=== PATIENT | male | born 1970 | race African-American/Black ===

== ENCOUNTER 2016-11-26 17:44 | Emergency (ER) | payer MEDICAID, OTHER ==
[~2016-11-26] VITALS: Ht 182.9 cm; Wt 90.9 kg
[~2016-11-26 17:44] MED LIST: CLON0.2T PO; DICY1TAB26 PO; INVE6TAB2 PO; KLON2TAB PO; MAGN1SOL2 PO; MIRA33502 PO; PARO30TA PO; PRAV40TA PO; Z.0.UNKNOWN
[2016-11-26 17:46] VITALS: BP 158/86; PULSE 115; RESP 24; TEMP 98.7
--- NOTE | 2016-11-26 17:51 | PD ---
Physical Exam Date Seen by Provider: Nov 26, 2016 Time Seen by Provider: 17:47 Narrative 46 y/o male with Hx PTSD with worsening symptoms recently. Patient currently on Adderal and Lexapro. Was on Seroquel, but developed Pancreatitis. Patient not sleeping or eating. Very Anxious. Denies Suicidal or Homocidal Ideation. Here voluntarily for Psych Eval. V/S Stable. Psyche Labs ordered per protocol. Patient waiting med bed placement. [facility] Medical Record Reviewed: Yes Supervised Visit with TELLO: Yes Condition: Stable Abraham Nunez Nov 26, 2016 17:51
[2016-11-26 18:27] LABS: AUTOMATED NEUTROPHIL # 5.9 TH/MM3 (1.8-7.7); BASOPHIL % 0.5 % (0.0-2.0); EOSINOPHIL # 0.4 TH/MM3 (0-0.4); EOSINOPHIL % 3.6 % (0.0-4.0); HEMATOCRIT 47.2 % (39.0-51.0); HEMO FLAGS DIFF FINAL; LYMPH % 28.1 % (9.0-44.0); LYMPHOCYTE # 2.7 TH/MM3 (1.0-4.8); MEAN CELL VOLUME 90.8 FL (80.0-100.0); MEAN CORPUSCULAR HEMOGLOBIN 30.3 PG (27.0-34.0); MEAN CORPUSCULAR HGB CONC 33.4 % (32.0-36.0); MONO % 7.1 % (0.0-8.0); NEUT % 60.7 % (16.0-70.0); PLATELET COUNT 261 TH/MM3 (150-450); RED CELL DISTRIBUTION WIDTH 12.8 % (11.6-17.2); WHITE BLOOD COUNT 9.7 TH/MM3 (4.0-11.0)
[2016-11-26 18:36] LABS: AMPHETAMINE, URINE NEG (NEG); BARBITURATES, URINE NEG (NEG); COCAINE, URINE POS (NEG)
[2016-11-26 18:49] LABS: ALKALINE PHOSPHATASE 119 U/L (45-117); TOTAL BILIRUBIN ADULT 0.8 MG/DL (0.2-1.0)
[2016-11-26 18:56] LABS: ALT (GPT) 34 U/L (12-78); ANION GAP 9 MEQ/L (5-15); AST (GOT) 50 U/L (15-37); BICARBONATE 25.2 MEQ/L (21.0-32.0); BLOOD UREA NITROGEN 17 MG/DL (7-18); CHLORIDE 107 MEQ/L (98-107); GLOMERULAR FILTRATION RATE 58 ML/MIN (>89); SODIUM (NA) 141 MEQ/L (136-145)
[2016-11-26 18:59] LABS: POTASSIUM 4.2 MEQ/L (3.5-5.1)
[2016-11-26 19:58] VITALS: BP 137/77; PULSE 87; RESP 16; TEMP 98.5; O2SAT 97
[2016-11-26] MEDS ORDERED: ROSU10 PO (20:13)
[2016-11-26] MEDS ORDERED: LOSA100T PO (20:13)
[2016-11-26] MEDS ORDERED: LEXA20TA PO (20:13)
[2016-11-26] MEDS ORDERED: DIAZ10 PO (20:13)
[2016-11-26] MEDS ORDERED: ADDE20 PO (20:13)
--- NOTE | 2016-11-26 20:20 | PD ---
HPI Chief Complaint: Depression Time Seen by Provider: 20:14 Travel History International Travel<30 days: No Contact w/Intl Traveler<30days: No Traveled to known affect area: No History of Present Illness HPI Patient is a 46-year-old male presenting to the emergency department due to worsening depression, racing thoughts, PTSD. Patient states that he has been off of his medications for approximately one week. He recently moved here from [place] and did not obtain refills prior to leaving. Patient reports a history of PTSD, bipolar disorder with psychotic tendencies, ADHD. Patient was in the stationed in [facility] in [facility]. Patient denies any suicidal ideations but states that he shouldn't be around people because he doesn't know how he would react someone made him mad. Patient does admit to a previous suicide attempt 4 years ago where he played [employer]. Additionally his past medical history is significant for hypertension and hyperlipidemia. PFSH Past Medical History ADHD: Yes Asthma: Yes Blood Disorders: No Bipolar Disorder: Yes Anxiety: Yes Depression: Yes Cancer: No Cardiac Catheterization: No High Cholesterol: Yes Chemotherapy: No Chest Pain: No Congestive Heart Failure: No COPD: No Coronary Artery Disease: Yes Diabetes: No Diminished Hearing: No Endocrine: No GERD: Yes Hypertension: Yes Immune Disorder: No Implanted Vascular Access Dvce: No Musculoskeletal: Yes (DDD, Lumbar stenosis) Neurologic: No Psychiatric: Yes (PTSD, bipolar with psychotic tendencies) Reproductive: No Respiratory: No Immunizations Current: Yes Myocardial Infarction: No Pancreatitis: Yes Radiation Therapy: No Sleep Apnea: No Thyroid Disease: No Ulcer: Yes Tetanus Vaccination: < 5 Years Influenza Vaccination: Yes PNEUMOCCOCAL Vaccine (Year): 2 Past Surgical History Surgical History: No Previous Surgery Coronary Artery Bypass Graft: No Other Surgery: No Social History Alcohol Use: Yes (6 pack of beers a week) Tobacco Use: Yes (1ppd) Substance Use: Yes (occaisonal Marijuana use) Allergies-Medications (Allergen,Severity, Reaction): Coded Allergies: Abilify (Verified Allergy, Severe, DYSTONIC REACTION, 11/26/16) Morphine (Verified Allergy, Severe, COUGH/RASH, 11/26/16) Seroquel (Verified Allergy, Severe, PANCREATITIS, 11/26/16) rage reaction for two weeks until therapeutic levels reached Toradol (Verified Allergy, Severe, SOB, 11/26/16) Vasotec (Verified Allergy, Severe, Cough, 11/26/16) Reported Meds & Prescriptions Reported Meds & Active Scripts Active Reported Crestor (Rosuvastatin Calcium) 10 Mg Tab 10 Mg PO DAILY Valium (Diazepam) 10 Mg Tab 10 Mg PO TID PRN Losartan (Losartan Potassium) 100 Mg Tab 100 Mg PO DAILY Adderall (Amphetamine-Dextroamphetamine) 20 Mg Tab 30 Mg PO DAILY Avoid late evening doses. Space doses at least 4 to 6 hours if more than once/day dosing. Lexapro (Escitalopram Oxalate) 20 Mg Tab 40 Mg PO DAILY Review of Systems Except as stated in HPI: all other systems reviewed are Neg Psychiatric: Positive: Anxiety, Depression, Substance Abuse, Homicidal Ideation Physical Exam Narrative GENERAL: Well-developed, well-nourished, alert gentleman. Resting comfortably in no acute distress. SKIN: Focused skin assessment warm/dry. HEAD: Atraumatic. Normocephalic. EYES: Pupils equal and round. No scleral icterus. No injection or drainage. ENT: No nasal bleeding or discharge. Mucous membranes pink and moist. NECK: Trachea midline. No JVD. CARDIOVASCULAR: Regular rate and rhythm. No murmur appreciated. RESPIRATORY: No accessory muscle use. Clear to auscultation. Breath sounds equal bilaterally. GASTROINTESTINAL: Abdomen soft, non-tender, nondistended. Hepatic and splenic margins not palpable. MUSCULOSKELETAL: No obvious deformities. No clubbing. No cyanosis. No edema. NEUROLOGICAL: Awake and alert. No obvious cranial nerve deficits. Motor grossly within normal limits. Normal speech. PSYCHIATRIC: Depressed mood and flat affect; insight and judgment normal. Data Data Last Documented VS Vital Signs Date Time Temp Pulse Resp B/P Pulse Ox O2 Delivery O2 Flow Rate FiO2 11/26/16 19:58 98.5 87 16 137/77 97 Room Air Orders Complete Blood Count With Diff (11/26/16 17:52) Comprehensive Metabolic Panel (11/26/16 17:52) Psych Screen (11/26/16 17:52) Drug Screen, Random Urine (11/26/16 17:52) Alcohol (Ethanol) (11/26/16 17:52) Labs Laboratory Tests Test 11/26/16 11/26/16 17:55 18:00 White Blood Count 9.7 TH/MM3 Red Blood Count 5.20 MIL/MM3 Hemoglobin 15.8 GM/DL Hematocrit 47.2 % Mean Corpuscular Volume 90.8 FL Mean Corpuscular Hemoglobin 30.3 PG Mean Corpuscular Hemoglobin 33.4 % Concent Red Cell Distribution Width 12.8 % Platelet Count 261 TH/MM3 Mean Platelet Volume 7.5 FL Neutrophils (%) (Auto) 60.7 % Lymphocytes (%) (Auto) 28.1 % Monocytes (%) (Auto) 7.1 % Eosinophils (%) (Auto) 3.6 % Basophils (%) (Auto) 0.5 % Neutrophils # (Auto) 5.9 TH/MM3 Lymphocytes # (Auto) 2.7 TH/MM3 Monocytes # (Auto) 0.7 TH/MM3 Eosinophils # (Auto) 0.4 TH/MM3 Basophils # (Auto) 0.0 TH/MM3 CBC Comment DIFF FINAL Differential Comment Sodium Level 141 MEQ/L Potassium Level 4.2 MEQ/L Chloride Level 107 MEQ/L Carbon Dioxide Level 25.2 MEQ/L Anion Gap 9 MEQ/L Blood Urea Nitrogen 17 MG/DL Creatinine 1.58 MG/DL Estimat Glomerular Filtration 58 ML/MIN Rate Random Glucose 142 MG/DL Calcium Level 8.9 MG/DL Total Bilirubin 0.8 MG/DL Aspartate Amino Transf 50 U/L (AST/SGOT) Alanine Aminotransferase 34 U/L (ALT/SGPT) Alkaline Phosphatase 119 U/L Total Protein 7.9 GM/DL Albumin 4.0 GM/DL Ethyl Alcohol Level LESS THAN 3 MG/DL Urine Opiates Screen NEG Urine Barbiturates Screen NEG Urine Amphetamines Screen NEG Urine Benzodiazepines Screen NEG Urine Cocaine Screen POS Urine Cannabinoids Screen NEG MDM Medical Decision Making Medical Screen Exam Complete: Yes Emergency Medical Condition: Yes Interpretation(s) Vital Signs Date Time Temp Pulse Resp B/P Pulse Ox O2 Delivery O2 Flow Rate FiO2 11/26/16 19:58 98.5 87 16 137/77 97 Room Air 11/26/16 17:46 98.7 115 24 158/86 Room Air Differential Diagnosis Mood disorder versus substance abuse versus homicidal ideations versus suicidal ideations versus other Narrative Course Patient is a 46-year-old male presenting to emergency for evaluation of worsening depression and homicidal ideations. Vital signs are stable, patient is resting comfortably. He reports a previous suicide attempt, racing thoughts and doesn't feel safe being left alone with other people for fear he may hurt someone. CBC is unremarkable Chemistries unremarkable Urine drug screen is positive for cocaine Alcohol level was normal Patient is medically clear for psychiatric evaluation at this time. Diagnosis Primary Impression: Medical clearance for psychiatric admission Condition: Stable Myrna Thapa Nov 26, 2016 20:20
[2016-11-27 02:40] VITALS: BP 134/93; PULSE 75; RESP 18; O2SAT 96
[2016-11-27 06:40] VITALS: BP 146/85; PULSE 61; RESP 18; O2SAT 99
[2016-11-27 10:00] VITALS: BP 141/65; PULSE 71; RESP 18; RESP 8
--- NOTE | 2016-11-27 15:13 | PD ---
History of Present Illness Chief Complaint: Depression Time Seen by Provider: 14:45 Travel History International Travel<30 Days: No Contact w/Intl Traveler<30days: No Known affected area: No Legal Status Legal Status: Voluntary History of Present Illness: History of Present Illness HPI Patient is a 46-year-old male with a reported hx of PTSD, depression, ADHD, bipolar disorder with psychosis presenting to the emergency department on a voluntary basis . Patient arrived to [place] yesterday from [place] and he came down here to try and repair his relationship with his . He states that he ran out of his medications 1 week as he did not obtain refill prior to moving. Since being off his medications he reports the following symptoms; voices that are like an echo or whispers, racing thoughts, decreased concentration, not sleeping, irritability with increased anger. He reports the symptoms have been escalating for several weeks and that the medications he was on were not fully managing his symptoms. Patient's initial complaint to ED screener was that he was having difficulty being around people. He was recommended to seek outpatient treatment . He became agitated and threatening towards staff and threatened that if he were discharged that " something bad would happen". He was initially threatening towards staff in [facility]. Patient is interviewed with DENISE Graff. He is alert and oriented. Speech is clear. He is irritable. He is continuing to report symptomatology but is initially opposed to receiving medication. " I don't want to be your guinea pig ". He requests Valium at some point. He only wants to begun medication that he will continue on outpatient basis. I have explained to him that since he is reporting multiple symptoms that it is recommended we begin some medication until he is accepted at [facility]. Patient does not appear internally preoccupied at this time. No suicidal ideation. He continues to verbalize that he feels unsafe being around people but does not elaborate on waht this means. [facility] Past Medical History ADHD: Yes Asthma: Yes Blood Disorders: No Bipolar Disorder: Yes Anxiety: Yes Depression: Yes Cancer: No Cardiac Catheterization: No High Cholesterol: Yes Chemotherapy: No Chest Pain: No Congestive Heart Failure: No COPD: No Coronary Artery Disease: Yes Diabetes: No Diminished Hearing: No Endocrine: No GERD: Yes Hypertension: Yes Immune Disorder: No Implanted Vascular Access Dvce: No Musculoskeletal: Yes (DDD, Lumbar stenosis) Neurologic: No Psychiatric: Yes (PTSD, bipolar with psychotic tendencies) Reproductive: No Respiratory: No Immunizations Current: Yes Myocardial Infarction: No Pancreatitis: Yes Radiation Therapy: No Sleep Apnea: No Thyroid Disease: No Ulcer: Yes Tetanus Vaccination: < 5 Years Influenza Vaccination: Yes PNEUMOCCOCAL Vaccine (Year): 2 Past Surgical History Surgical History: No Previous Surgery Coronary Artery Bypass Graft: No Other Surgery: No Psychiatric History Psychiatric History Hx Psychiatric Treatment: HX OF BIPOLAR D/O AND PTSD, ADHD Reports he has been in tx with Dr. Peter. Past medications include Seroquel, Abilify, Latuda. He reports adverse effects from all these. History of Inpatient Treatment: Yes Guns or firearms in home: No Social History Born in [place]. Completed HS. since . Has adult children Served in the [employer]. Retired from the [employer] w medical discharge. Hx Alcohol Use: Yes (6 pack of beers a week) Hx Tobacco Use: Yes (1ppd) Hx Substance Use: Yes (occaisonal Marijuana use) Substance Use Type: Alcohol, Crack, Marijuana, Nicotine/Cigarettes, Cocaine Other Substances Used: ETOH, COCAINE, NICOTINE, OCC MARIJUANA Hx of Substance Use Treatment: No Family Psychiatric History deneis anySMA Allergies-Medications (Allergen,Severity, Reaction): Coded Allergies: Abilify (Verified Allergy, Severe, DYSTONIC REACTION, 11/26/16) Morphine (Verified Allergy, Severe, COUGH/RASH, 11/26/16) Seroquel (Verified Allergy, Severe, PANCREATITIS, 11/26/16) rage reaction for two weeks until therapeutic levels reached Toradol (Verified Allergy, Severe, SOB, 11/26/16) Vasotec (Verified Allergy, Severe, Cough, 11/26/16) Reported Meds & Prescriptions Reported Meds & Active Scripts Active Reported Crestor (Rosuvastatin Calcium) 10 Mg Tab 10 Mg PO DAILY Valium (Diazepam) 10 Mg Tab 10 Mg PO TID PRN Losartan (Losartan Potassium) 100 Mg Tab 100 Mg PO DAILY Adderall (Amphetamine-Dextroamphetamine) 20 Mg Tab 30 Mg PO DAILY Avoid late evening doses. Space doses at least 4 to 6 hours if more than once/day dosing. Lexapro (Escitalopram Oxalate) 20 Mg Tab 40 Mg PO DAILY Review of Systems Except as stated in HPI: all other systems reviewed are Neg Psychiatric: COMPLAINS OF: Anxiety, Mood changes, Depression, Hallucinations, Agitation Exam Alert: Yes [place]: Person (ox4) Mood: Agitated, Angry, Oppositional Affect: Other (angry affect) Speech: Clear, Logical Eye Contact: Normal Memory Intact: Comment (No impairmetn) Hallucinations: Auditory (unable to determine what they say) Delusions: No Suicidal: Ideation (deneis) Homicidal: Ideation (feels like he cannot be around people and be safe.) Insight/Judgement Safe. Poor. MDM Medical Decision Making Medical Record Reviewed: Yes Assessment/Plan 46 year old male with a reported hx of PTSD, ADHD, bipolar disorder who reports that he has been out of medication and has experienced increase in symptoms including agitation, racing thoughts, not sleeping, and feeling unsafe. At this point he will remain on SMA list. Initiate treatment as patient is volatile and easily agitated and reports not sleeping. SMA list for tx as no appropriate bed here at [facility]. Orders Complete Blood Count With Diff (11/26/16 17:52) Comprehensive Metabolic Panel (11/26/16 17:52) Psych Screen (11/26/16 17:52) Drug Screen, Random Urine (11/26/16 17:52) Alcohol (Ethanol) (11/26/16 17:52) Diet Regular Basic (11/27/16 Breakfast) Diet Regular Basic (11/27/16 Lunch) Diet Regular Basic (11/27/16 Dinner) Results Vital Signs Date Time Temp Pulse Resp B/P Pulse Ox O2 Delivery O2 Flow Rate FiO2 11/27/16 10:00 71 18 141/65 Room Air 11/27/16 06:40 61 18 146/85 99 11/27/16 02:40 75 18 134/93 96 11/26/16 19:58 98.5 87 16 137/77 97 Room Air 11/26/16 17:46 98.7 115 24 158/86 Room Air Laboratory Tests Test 11/26/16 11/26/16 17:55 18:00 White Blood Count 9.7 Red Blood Count 5.20 Hemoglobin 15.8 Hematocrit 47.2 Mean Corpuscular Volume 90.8 Mean Corpuscular Hemoglobin 30.3 Mean Corpuscular Hemoglobin 33.4 Concent Red Cell Distribution Width 12.8 Platelet Count 261 Mean Platelet Volume 7.5 Neutrophils (%) (Auto) 60.7 Lymphocytes (%) (Auto) 28.1 Monocytes (%) (Auto) 7.1 Eosinophils (%) (Auto) 3.6 Basophils (%) (Auto) 0.5 Neutrophils # (Auto) 5.9 Lymphocytes # (Auto) 2.7 Monocytes # (Auto) 0.7 Eosinophils # (Auto) 0.4 Basophils # (Auto) 0.0 CBC Comment DIFF FINAL Differential Comment Sodium Level 141 Potassium Level 4.2 Chloride Level 107 Carbon Dioxide Level 25.2 Anion Gap 9 Blood Urea Nitrogen 17 Creatinine 1.58 Estimat Glomerular Filtration 58 Rate Random Glucose 142 Calcium Level 8.9 Total Bilirubin 0.8 Aspartate Amino Transf 50 (AST/SGOT) Alanine Aminotransferase 34 (ALT/SGPT) Alkaline Phosphatase 119 Total Protein 7.9 Albumin 4.0 Ethyl Alcohol Level LESS THAN 3 Urine Opiates Screen NEG Urine Barbiturates Screen NEG Urine Amphetamines Screen NEG Urine Benzodiazepines Screen NEG Urine Cocaine Screen POS Urine Cannabinoids Screen NEG Diagnosis Primary Impression: Medical clearance for psychiatric admission Additional Impression: Bipolar disorder Condition: Stable Problem Qualifiers Additional Impression: Bipolar disorder Qualified Code: F31.0 - Bipolar affective disorder, current episode hypomanic Yahaira Cordova Nov 27, 2016 15:13
[2016-11-27] MEDS ORDERED: OLANZapine IM 10 MG VIAL IM ONE (16:00)
[2016-11-27] MEDS ORDERED: diphenhydrAMINE HCL 50 MG/ML VIAL IM PRN (16:00)
[2016-11-27 22:00] VITALS: BP 126/81; PULSE 83; RESP 18
[2016-11-28 01:51] VITALS: BP 133/77; PULSE 56; RESP 18
[2016-11-28 06:04] VITALS: BP 131/90; PULSE 56; RESP 18
[2016-11-28] MEDS ORDERED: OLANZapine 10 MG TAB PO ONE (09:15)
--- NOTE | 2016-11-28 09:37 | HHI.PYPN ---
Subjective Remarks History of Present Illness Patient is a 46-year-old male with a reported hx of PTSD, depression, ADHD, bipolar disorder with psychosis presenting to the emergency department on a voluntary basis . Patient at the time of the admission was requesting treatment as he reported that he had run out of his psychiatric medications one week prior. Patient did not verbalize any suicidal or homicidal ideation only that he " didn't feel safe around people". Patient presented in irritable, entitled and demanding manner but maintained behavioral control. He was placed on [facility] list for treatment as there were no appropriate beds for him here on [facility]. He agreed to await treatment there as he wanted to be able to initiate treatment where he could be followed up. He slept well last night and has eaten well. No chema and no psychosis has been observed. This morning the patient is upset when he is informed that he is still on the list for [facility] and has fallen further on the list at this time. He does not want to stay here and is requesting discharge in order to go to [facility] on his own. Dajuan WALKER has offered to schedule appointment for him at [facility] outpatient but patient is requesting discharge so that he can present there as a walk in. Refused offer for a RX for the Zyprexa that he received yesterday. At this time the patient does not meet criteria for BA as he has not presented any suicidal or homicidal ideation, no psychosis. he is upset because he is offerred bus passes. he is demanding cab fare as he prefers to go out there in a taxi. Review of Systems Except as stated in HPI: all other systems reviewed are Neg Objective Alert: Yes [place]: Person (ox4) Mood: Agitated (not agitated but angry. Maintains behavioral control), Angry, Oppositional Affect: Other (angry affect) Memory Intact: Comment (No impairmetn) Hallucinations: Auditory (None at thsi time. Does not appear to be responding to any internal stimuli.) Delusions: No Delusion Type: Other (neagtive) Suicidal: Ideation (denies) Homicidal: Ideation (denies) Insight/Judgment poor. not impaired. Vitals/IOs Vital Signs Date Time Temp Pulse Resp B/P Pulse Ox O2 Delivery O2 Flow Rate FiO2 11/28/16 06:04 56 18 131/90 11/27/16 22:00 Nasal Cannula 11/27/16 06:40 99 4/22/17 19:58 98.5 Assessment & Plan Problem List: (1) Bipolar disorder ICD Code: F31.9 (2) Drug-induced mood disorder ICD Code: F19.94 Assessment & Plan At this time this patient has been monitored here in [facility] over thirty hours. he has maintained behavioral control although he is demanding, angry and irritable. he has been medicated w Zyprexa. refused dose this morning and refused rx offered to him. He is requesting discharge from [facility] and plans on presenting to [facility] walk in clinic. Before departing he states " If I don't get in there I will come back here". Has been informed that if any changes in condition he can certainly return to [facility]. Justification for Cont. Inpt. Patient at this time does not meet criteria for BA and is requesting discharge to seek care at [facility]. Discharge Planning Discharge to self with resources to [facility]. Problem Qualifiers (1) Bipolar disorder: Qualified Code: F31.0 - Bipolar affective disorder, current episode hypomanic Yahaira Cordova Nov 28, 2016 09:37
== END 2016-11-28 09:59 | disposition home or self-care (01) ==
LOC: NEPE 17:44 → NEPJ 11-28 09:59
DX: F31.0 Bipolar disorder, current episode hypomanic (principal); I10 Essential (primary) hypertension; E78.5 Hyperlipidemia, unspecified; J45.909 Unspecified asthma, uncomplicated; E78.00 Pure hypercholesterolemia, unspecified; I25.10 Atherosclerotic heart disease of native coronary artery without angina pectoris; F17.210 Nicotine dependence, cigarettes, uncomplicated
CPT/HCPCS: 80053; 80307; 85025; 96372; 99284; J1200